=== PATIENT | male | born 1980 | race African-American/Black ===

== ENCOUNTER 2020-05-04 03:37 | Emergency (ER) | payer MEDICAID, SELFPAY ==
[~2020-05-04] VITALS: Ht 170.2 cm; Wt 64.0 kg
[2020-05-04 06:00] LABS: BASOPHILS % 0.6 % (0.0-2.0); EOSINOPHILS % 0.5 % (0.0-5.0); HEMATOCRIT. 41.7 % (42.0-52.0); HEMOGLOBIN. 14.1 g/dL (14.0-18.0); LYMPHOCYTES % 21.6 % (20.0-50.0); MEAN CORPUSCULAR HEMOGLOBIN 27.2 pg (28.0-32.0); MEAN CORPUSCULAR VOLUME 80.5 fL (80.0-94.0); MEAN PLATELET VOLUME 8.7 fl (7.4-10.4); MONOCYTES % 7.3 % (2.0-8.0); PLATELET 222 x1000/uL (130-400); RED BLOOD CELL COUNT 5.18 mill/uL (4.7-6.1)
[2020-05-04 06:01] LABS: CHLORIDE 106 mEq/L (98-107)
[2020-05-04 06:30] VITALS: BP 155/96
== END 2020-05-04 08:00 | disposition home or self-care (01) ==
LOC: ER 03:37
DX: R20.2 Paresthesia of skin (principal); R09.82 Postnasal drip
CPT/HCPCS: 36415; 71045; 80053; 84484; 85025; 93005; 99285